=== PATIENT | female | born 1950 | race Caucasian/White ===

== ENCOUNTER 2017-10-30 20:28 | Inpatient (IN) | payer MEDICARE ==
[2017-10-30 21:49] LABS: ADD MAN DIFF? NO
[2017-10-30 21:51] LABS: WHITE BLOOD COUNT 12.4 10^3/ul (4.8-10.8)
[2017-10-30 21:51] LABS: BASOPHIL # 0.1 10^3/ul (0.0-0.1); BASOPHILS % 0.4 % (0.0-2.0); EOSINOPHILS % 0.1 % (0.0-7.0); HEMATOCRIT 30.8 % (37.0-47.0); HEMOGLOBIN 9.4 g/dl (12.0-16.0); LYMPHOCYTES # 0.7 10^3/ul (0.8-2.9); LYMPHOCYTES % 5.9 % (15.0-51.0); MEAN CORPUSCULAR HEMOGLOBIN 25.6 pg (29.0-33.0); MEAN CORPUSCULAR HGB CONC 30.5 g/dl (32.0-37.0); MEAN CORPUSCULAR VOLUME 83.9 fl (82.0-101.0); MEAN PLATELET VOLUME 10.5 fl (7.4-10.4); MONOCYTE # 1.4 10^3/ul (0.3-0.9); NEUTROPHIL # 10.2 10^3/ul (1.6-7.5); NEUTROPHILS % 82.3 % (39.0-77.0); PLATELET COUNT 580 10^3/UL (140-415); RED BLOOD COUNT 3.67 10^6/ul (4.20-5.40); RED CELL DISTRIBUTION WIDTH 17.7 % (11.5-14.5)
[2017-10-30 22:11] LABS: INR 1.09; PARTIAL THROMBOPLASTIN TIME 24.4 Sec (25.0-35.0); PROTIME 14.3 Sec (11.9-14.9); PT RATIO 1.1
[2017-10-30 22:14] LABS: ALANINE AMINOTRANSFERASE 13 IU/L (13-69); ALBUMIN 3.1 g/dl (3.3-4.9); ALBUMIN/GLOBULIN RATIO 0.79; ALKALINE PHOSPHATASE 134 IU/L (42-121); ANION GAP 10 (8-16); ASPARTATE AMINO TRANSFERASE 38 IU/L (15-46); BLOOD UREA NITROGEN 16 mg/dl (7-20); CALCIUM 10.7 mg/dl (8.4-10.2); CARBON DIOXIDE 28 mmol/L (21-31); CHLORIDE 104 mmol/L (97-110); CREATININE 0.66 mg/dl (0.44-1.00); GLUCOSE 113 mg/dl (70-220); LIPASE 150 U/L (23-300); POTASSIUM 4.4 mmol/L (3.5-5.1); SODIUM 138 mmol/L (135-144)
[2017-10-30 22:26] LABS: TROPONIN-I 0.018 ng/ml (0.000-0.120)
[2017-10-30] MEDS: CEFEPIME 1GM/50 ML (PMX) 50 ML IVPB ×2 (22:31→23:37)
[2017-10-30] MEDS: VANCOMYCIN 1 GM (PMX) 250 ML IVPB (22:31)
[2017-10-30 23:12] LABS: B-TYPE NATRIURETIC PEPTIDE 1100 PG/ML (0-125)
[2017-10-30] MEDS: SOD CHLORIDE 0.9% 0 ML (23:18)
[2017-10-30] MEDS: IOHEXOL 0 ML (23:18)
[2017-10-31 00:19] LABS: INR 1.05; PROTIME 13.8 Sec (11.9-14.9); PT RATIO 1.1
[2017-10-31 00:20] LABS: PARTIAL THROMBOPLASTIN TIME 30.1 Sec (25.0-35.0)
[2017-10-31 00:28] LABS: D-DIMER 3291.51 ng/ml (<460)
[2017-10-31] MEDS: DOXYCYCLINE 100 MG in SOD CHLORIDE 0.9% 250 ML IVPB ×3 (01:06→20:41)
[2017-10-31] MEDS: LORAZEPAM 2 MG INJ IV (01:06)
[2017-10-31] MEDS: ENOXAPARIN 80 MG/0.8 ML SYG SC ×3 (01:17→15:23)
[2017-10-31] MEDS ORDERED: ONDANSETRON 4 MG INJ IV ×2 (01:30→03:30)
[2017-10-31] MEDS ORDERED: BISACODYL (EC) 5 MG TAB PO (03:30)
[2017-10-31] MEDS ORDERED: DOCUSATE SODIUM 100 MG CAP PO (03:30)
[2017-10-31] MEDS ORDERED: NACL 0.9% 3 ML SYG IV (03:30)
[2017-10-31] MEDS: FUROSEMIDE 40 MG INJ IV ×2 (04:00→09:00)
[2017-10-31] MEDS ORDERED: LORAZEPAM 2 MG INJ IV (05:30)
[2017-10-31 09:01] LABS: IRON 36 ug/dl (35-150)
[2017-10-31 09:01] LABS: LACTIC ACID 1.9 mmol/L (0.5-2.0)
[2017-10-31 09:11] LABS: % IRON SATURATION 20 % SAT (22-52); TOTAL IRON BINDING CAPACITY 179 ug/dl (241-421)
[2017-10-31] MEDS: ACETAMINOPHEN 325 MG TAB PO (09:25)
[2017-10-31 09:56] LABS: ERYTHROCYTE SEDIMENTATION RATE 92 mm/Hr (0-30)
[2017-11-01] MEDS: ENOXAPARIN 80 MG/0.8 ML SYG SC ×2 (03:30→15:30)
[2017-11-01] MEDS: QUETIAPINE 25 MG TAB PO ×2 (09:00→21:00)
[2017-11-02] MEDS: ENOXAPARIN 80 MG/0.8 ML SYG SC (03:30)
[2017-11-02] MEDS: QUETIAPINE 25 MG TAB PO ×2 (08:18→21:00)
[2017-11-03] MEDS: QUETIAPINE 25 MG TAB PO ×2 (08:37→20:46)
[2017-11-03] MEDS: ENOXAPARIN 30 MG/0.3 ML SYG SC (08:37)
[2017-11-04] MEDS: QUETIAPINE 25 MG TAB PO ×2 (08:50→21:00)
[2017-11-04] MEDS: ENOXAPARIN 30 MG/0.3 ML SYG SC (08:51)
[2017-11-05] MEDS: ENOXAPARIN 30 MG/0.3 ML SYG SC (08:14)
[2017-11-05] MEDS: QUETIAPINE 25 MG TAB PO ×2 (08:14→21:00)
[2017-11-05 13:21] LABS: PROCALCITONIN <0.10 ng/mL (<0.10)
[2017-11-05] MEDS: CYANOCOBALAMIN 1000 MCG INJ IM (14:30)
[2017-11-05] MEDS ORDERED: FLUCONAZOLE 100 MG/50 ML (PMX) 50 ML IVPB (14:30)
[2017-11-05] MEDS: FLUCONAZOLE 200 MG TAB PO (17:55)
[2017-11-06] MEDS: ACETAMINOPHEN 325 MG TAB PO ×2 (00:10→23:59)
[2017-11-06] MEDS: ENOXAPARIN 30 MG/0.3 ML SYG SC (09:00)
[2017-11-06] MEDS: QUETIAPINE 25 MG TAB PO ×2 (09:00→21:00)
[2017-11-06] MEDS: FLUCONAZOLE 200 MG TAB PO (09:28)
[2017-11-07] MEDS: ACETAMINOPHEN 325 MG TAB PO ×2 (07:18→19:24)
[2017-11-07] MEDS: ENOXAPARIN 30 MG/0.3 ML SYG SC (09:00)
[2017-11-07] MEDS: FLUCONAZOLE 200 MG TAB PO (09:00)
[2017-11-07] MEDS: QUETIAPINE 25 MG TAB PO (09:00)
[2017-11-07] MEDS: LORAZEPAM 1 MG TAB PO (15:32)
== END 2017-11-07 19:56 | DRG 598 ==
LOC: E/R 20:28 → 6WM 10-31 01:22 → MS1 11-04 23:20
DX: C50.912 Malignant neoplasm of unspecified site of left female breast (principal); J90 Pleural effusion, not elsewhere classified; C78.00 Secondary malignant neoplasm of unspecified lung; F20.0 Paranoid schizophrenia; C78.7 Secondary malignant neoplasm of liver and intrahepatic bile duct; C79.51 Secondary malignant neoplasm of bone; J98.11 Atelectasis; C50.911 Malignant neoplasm of unspecified site of right female breast; Z66 Do not resuscitate; F32.89 Other specified depressive episodes; R60.0 Localized edema; D63.8 Anemia in other chronic diseases classified elsewhere; Z91.041 Radiographic dye allergy status
CPT/HCPCS: 36415; 71045; 76604; 80053; 82728; 83540; 83605; 83690; 83880; 84145; 84484; 85025; 85378; 85610; 85651; 85730; 86140; 87040; 93005; 93306; 93970; 96365; 96375; 97110; 97116; 97161; 97530; 99285-25